=== PATIENT | female | born 1985 | race Caucasian/White ===

== ENCOUNTER 2023-05-23 12:43 | Emergency (ER) | payer SELFPAY ==
[~2023-05-23] VITALS: Ht 154.9 cm; Wt 61.0 kg
[2023-05-23 13:08] VITALS: BP 121/76; PULSE 73; RESP 16; TEMP 98.5; O2SAT 99
[2023-05-23 13:40] VITALS: O2SAT 99
[2023-05-23] MEDS: IBUPROFEN 600 MG TAB PO ONE (14:09)
[2023-05-23 14:17] LABS: APPEARANCE,URINE CLEAR (CLEAR); BILIRUBIN,URINE NEGATIVE (NEGATIVE); BLOOD, URINE NEGATIVE (NEGATIVE); COLOR,URINE YELLOW (YELLOW); LEUKOCYTE ESTERASE ,URINE NEGATIVE (NEGATIVE); NITRITE, URINE NEGATIVE (NEGATIVE); PROTEIN,URINE NEGATIVE (NEGATIVE); UGLUCOSE NEGATIVE (NEGATIVE); UROBILINOGEN,URINE 0.2 EU/dL (0.2 - 1)
[2023-05-23] MEDS ORDERED: NAPR-54 PO (16:11)
[2023-05-30] MEDS ORDERED: MICO24CM5 VG (11:35)
== END 2023-05-23 16:36 | disposition home or self-care (01) ==
LOC: MED 12:43
DX: D25.9 Leiomyoma of uterus, unspecified (principal); Z90.49 Acquired absence of other specified parts of digestive tract; Z79.899 Other long term (current) drug therapy
CPT/HCPCS: 76856; 81003; 81025; 87210; 87491; 93976; 99284; Q0092